=== PATIENT | male | born 1990 | race Asian ===

== ENCOUNTER 2017-09-25 04:07 | Emergency (ER) | payer OTHER ==
--- NOTE | 2017-09-25 04:20 | EMERGENCY ROOM VISIT NOTE ---
History Report prepared by Rex: Alcides Guardado Under the Supervision of: Dr. Zackary Dyer M.D. First contact with patient: 04:12 Chief Complaint: ALCOHOL OVERDOSE Stated Complaint: ALCOHOL OVERDOSE History of Present Illness The patient is a 26 year old male who presents to the Emergency Room with an alcohol overdose. EMS states the patient was found at a house on [address]. They report the patient was starting to cause problems and was asked to leave. EMS notes he would not leave, so the police were called. They state the patient was intoxicated and police called EMS. HPI limited secondary to the patient's alcohol overdose. Source of History: EMS History Limited By: intoxication Review of Systems ROS limited secondary to the patient's alcohol overdose. Past Medical & Surgical Unobtainable secondary to the patient's alcohol overdose. Family History Unobtainable secondary to the patient's alcohol overdose. Social History Smoking Status: Never Smoker Marital Status: single Housing Status: unknown Occupation Status: [employer] Current/Historical Medications Unable to Obtain Active Prescriptions or Reported Meds Physical Exam Vital Signs Date Time Temp Pulse Resp B/P (MAP) Pulse Ox O2 Delivery O2 Flow Rate FiO2 09/25/17 11:39 97 16 101/61 97 Room Air 09/25/17 11:01 92/37 09/25/17 10:47 97 16 09/25/17 10:31 110/51 09/25/17 10:17 74 20 09/25/17 10:01 88/46 09/25/17 09:47 73 16 09/25/17 09:42 73 20 09/25/17 09:31 114/54 09/25/17 09:12 71 1 94 09/25/17 09:07 70 0 94 09/25/17 09:01 85/33 09/25/17 08:37 71 12 85/38 97 09/25/17 08:11 75 09/25/17 08:07 80 18 92 09/25/17 07:57 71 12 108/68 96 Room Air 09/25/17 07:56 108/48 09/25/17 07:37 69 96 09/25/17 07:07 66 97 09/25/17 07:00 97 Room Air 09/25/17 06:37 68 97 09/25/17 06:07 75 16 99 09/25/17 05:48 108/59 09/25/17 05:47 79 18 108/59 97 Room Air 09/25/17 05:37 83 14 99 09/25/17 05:07 73 17 95 09/25/17 04:37 74 18 93 09/25/17 04:30 119/60 09/25/17 04:27 36.7 85 18 121/71 93 Room Air 09/25/17 04:25 92 Physical Exam GENERAL: Patient is heavily intoxicated. Smells of alcohol. Well appearing and in no acute distress. Belligerent at times but somewhat redirectable. HEAD: No evidence of Trauma. AT/NC EYES: Injected conjunctiva. Normal EOM. Pupils equal/reactive. ENT: Mucous membranes moist, no nasal congestion. NECK: No step-offs, no adenopathy, no meningismus, trachea is midline. LUNGS: No dyspnea. Clear to auscultation and equal bilaterally. No wheeze, no rhonchi. HEART: Regular rate and rhythm. No murmurs, rubs, gallops appreciated. GI: Abdomen soft, nontender, no peritonitis. Bowel sounds positive. No masses appreciated. BACK: No midline tenderness, no stepoffs, no CVA tenderness EXTREMITIES: Normal motion all extremities, no cyanosis, no edema. NEUROLOGIC: Intoxicated. Awake and answering select questions. No acute motor or sensory deficits, no focal weakness, cranial nerves grossly intact. SKIN: No rash, no jaundice, no diaphoresis. Medical Decision & Procedures Laboratory Results 09/25/17 04:17 Test 09/25/17 04:17 Anion Gap 8.0 mmol/L (3-11) Estimated GFR () 117.3 Estimated GFR (Non- 101.2 BUN/Creatinine Ratio 10.3 (10-20) Calcium Level 8.8 mg/dl (8.5-10.1) Ethyl Alcohol mg/dL 299.0 mg/dl (0-3) Laboratory results as reviewed by me. ED Course 0413: The patient was evaluated in room A12B. A brief history and physical exam was performed secondary to the patient's poor cooperation and intoxication. 0421: The patient has calmed down Medical Decision Differential: Alcohol Intoxication, Drug Intoxication, Electrolyte Abnormality, Trauma, Intracranial Event, Toxicological, Excited Delirium, Serotonin Syndrome , amongst other pathologies entertained. 26 yr old intoxicated male brought in by EMS after refusing to leave a alliance party and 911 got involved. A bit confrontational on arrival but was able to redirect him and eventually fell asleep. Patient with no evidence nor history for trauma. Protecting airway and breathing comfortably throughout ED stay. EtOH positive. Monitored and discharged when awake, alert, oriented and denies any complaints. Medication Reconcilliation Current Medication List: was personally reviewed by me Blood Pressure Screening Patient's blood pressure: Normal blood pressure Blood pressure disposition: Did not require urgent referral Impression Primary Impression: Alcohol abuse Additional Impression: Alcohol intoxication Scribe Attestation The scribe's documentation has been prepared under my direction and personally reviewed by me in its entirety. I confirm that the note above accurately reflects all work, treatment, procedures, and medical decision making performed by me. Departure Information Dispostion Home / Self-Care Prescriptions Unable to Obtain Active Prescriptions or Reported Meds Referrals No Doctor, Assigned (PCP) Forms HOME CARE DOCUMENTATION FORM, IMPORTANT VISIT INFORMATION Patient Instructions My [facility] Additional Instructions You were evaluated in emergency department for intoxication. This is a sign of Alcohol Abuse and should not be taken lightly. You had a blood alcohol level that was significantly elevated. Over the next 24 hours keep well hydrated and eat light meals. Don't drink any more alcohol. This is important. Please discuss this visit with your Primary Care Provider, [facility] and/or your loved ones. If the Police were involved you will likely be cited for public intoxication. Please contact either [facility] Police or the [place] Police for further information. Call 911 or return to Emergency Department if you develop: Passing out, difficulty breathing, many episodes of vomiting, blood in vomit or stool, abdominal pain, fevers, or other severe symptoms. We are always here to help if you feel you need further evaluation or treatment. Problem Qualifiers
[2017-09-25 04:27] VITALS: TEMP 36.7
[2017-09-25 04:53] LABS: BLOOD UREA NITROGEN 11 mg/dl (7-18); CALCIUM 8.8 mg/dl (8.5-10.1); CARBON DIOXIDE 24 mmol/L (21-32); CREATININE 1.03 mg/dl (0.60-1.40); GLUCOSE 99 mg/dl (70-99); POTASSIUM 3.3 mmol/L (3.5-5.1); SODIUM 143 mmol/L (136-145)
[2017-09-25 07:00] VITALS: O2SAT 97
[2017-09-25 11:39] VITALS: BP 101/61; PULSE 97; O2SAT 97
== END 2017-09-25 11:40 | disposition home or self-care (01) ==
LOC: EDBD 04:07 → C.EDA 04:08
DX: F10.129 Alcohol abuse with intoxication, unspecified (principal)